=== PATIENT | male | born 1995 | race Hispanic/Latino ===

== ENCOUNTER 2022-03-24 05:05 | Emergency (ER) | payer MEDICAID, OTHER, SELFPAY ==
[2022-03-24] MEDS ORDERED: Dexamethasone 10 MG/ML VIAL ONE (05:48)
[2022-03-24] MEDS ORDERED: Ondansetron ODT 4 MG TAB ONE (05:48)
== END 2022-03-24 06:20 | disposition home or self-care (01) ==
LOC: ERS 05:05
DX: L23.7 Allergic contact dermatitis due to plants, except food (principal)
CPT/HCPCS: 96372; 99282; J1100; Q0162

== ENCOUNTER 2022-05-07 10:11 | Emergency (ER) | payer OTHER | END 2022-05-07 11:03 | disposition home or self-care (01) | LOC: ERS 10:11 | DX: L72.3 Sebaceous cyst (principal) | CPT/HCPCS: 99282 ==